=== PATIENT | male | born 1990 | race African-American/Black ===

== ENCOUNTER 2021-12-12 08:08 | Emergency (ER) | payer OTHER ==
[~2021-12-12] VITALS: Ht 182.9 cm; Wt 99.8 kg
--- NOTE | 2021-12-12 08:14 | NUR ---
Colleen chin in [facility] - 12/12/21 at 1059 by ANDREA JOSH ENRIQUEZ AT [facility] FOR EVAL.
--- NOTE | 2021-12-12 08:15 | NUR ---
PIPER ELIZABETH FROM THE STREETS, PER EMS REPORT PATIENTS FRIENDS CALLED BECAUSE PATIENT WAS UNRESPONSIVE S/P TAKING UNKNOWN DRUGS. FRIENDS WERE DOING CPR, UNKNOWN IF PATIENT WAS PULSELESS, WAS GIVEN NARCAN TOTAL 12MG INTRANASAL. PATIENT IS AROUSABLE EX ASSISTANT/PROGRAM DIRECTOR. STATES NAME IS "CASTELLANOS" REFUSING TO PROVIDE MORE INFO. PLACED ON MONITOR. STABLE VITALS. AWAITING MD WATKINS.
--- NOTE | 2021-12-12 08:16 | NUR ---
DR ENRIQUEZ AT BEDSIDE FOR EVAL.
--- NOTE | 2021-12-12 08:45 | NUR ---
BLOOD DRAWN FROM EXISTING IV SENT TO LAB. PT NOT PROVIDING URINE SAMPLE AT THIS TIME.
[2021-12-12 09:24] LABS: ALANINE AMINOTRANSFERASE 42 U/L (12-78); ALBUMIN 4.1 g/dL (3.4-5.0); ALKALINE PHOSPHATASE 80 U/L (46-116); ASPARTATE AMINOTRANSFERASE 32 U/L (15-37); BILIRUBIN,DIRECT 0.1 mg/dL (0.0-0.2); BILIRUBIN,TOTAL 0.5 mg/dL (0.2-1.0); CALCIUM, SERUM 8.4 mg/dL (8.5-10.1); CARBON DIOXIDE 25 mmol/L (21-32); CHLORIDE 102 mmol/L (98-107); CREATININE 1.7 mg/dL (0.6-1.3); GLUCOSE 206 mg/dL (74-106); POTASSIUM 4.2 mmol/L (3.5-5.1); SODIUM SERUM 139 mmol/L (136-145); TOTAL PROTEIN, SERUM 8.1 g/dL (6.4-8.2); UREA NITROGEN, BLOOD 18 mg/dL (7-18)
[2021-12-12 09:25] LABS: ACETAMINOPHEN 0 ug/ml (10-30)
[2021-12-12 09:26] LABS: ALCOHOL, BLOOD < 3 mg/dL (0-0)
[2021-12-12 09:54] LABS: BASOPHILS % (AUTO) 0.2 % (0.0-2.0); HEMATOCRIT 44 % (39-51); HEMOGLOBIN 14.9 g/dL (13.5-17.5); LYMPHOCYTES # (AUTO) 1.3 K/uL (0.8-4.8); MEAN CORPUSCULAR HGB CONC 34 g/dl (31.0-36.0); MEAN CORPUSCULAR VOLUME 97 fL (80-96); MONOCYTES # (AUTO) 0.4 K/uL (0.1-1.30); MONOCYTES % (AUTO) 5.6 % (2.0-12.0); NEUTROPHILS # (AUTO) 5.5 K/uL (1.8-8.9); NEUTROPHILS % (AUTO) 75.2 % (43.0-81.0); PLATELET COUNT (AUTO) 271 K/uL (150-450); RED BLOOD CELL COUNT(AUTO) 4.51 MIL/uL (4.5-6.0); WHITE BLOOD COUNT (AUTO) 7.3 K/uL (4.3-11.0)
--- NOTE | 2021-12-12 10:18 | NUR ---
SS consult for overdose. Pt. Is a 32-year-old Black male. Pt. does not demonstrate adequate insight to the reason for hospitalization. Per pt., he does not remember how he got here. Pt. stated that his is 86 [Per EMR, it states [birth year]]. Pt. was oriented x2 and was not cooperative. SW explored pt.'s hx of mental health and substance abuse. Per pt., he uses marijuana often. Pt. reported no hx of mental health, suicidal or homicidal ideation. Pt. denies auditory hallucinations, visual hallucinations, paranoia, or delusions. SW explored pt.'s living situation. Per pt., he lives with his mom [address: [address] [place] [id number], mom's info: ty [phone]]. Pt. refused to answer further questions. SW left addiction resources at bedside.
--- NOTE | 2021-12-12 11:03 | NUR ---
mom's info: Ty [phone] CALLED LEFT VM
--- NOTE | 2021-12-12 11:08 | NUR ---
CALLED PTS MOM AT [phone] AND LEFT VOICEMAIL
--- NOTE | 2021-12-12 11:41 | NUR ---
Pt.'s mother is on the way to flower buncher or picker pt.
[2021-12-12] MEDS ORDERED: NALO4SPR BNOSTRILS (12:52)
--- NOTE | 2021-12-12 13:02 | NUR ---
The patient is alert and oriented x4. Denies pain. In room air and denies SOB. Respiration regular and unlabored. IV removed. Catheter intact and site benign. Pressure and 4x4 applied to site. No bleeding noted.Patient discharged to home in stable condition. Written and verbal after care instructions given. Patient verbalizes understanding of instruction. The patient is picked up by mother.
[2021-12-12 13:04] VITALS: BP 136/87
== END 2021-12-12 13:04 | disposition home or self-care (01) ==
LOC: EDBD 08:10 → ER 08:10
DX: T50.901A Poisoning by unspecified drugs, medicaments and biological substances, accidental (unintentional), initial encounter (principal); Z59.00 Homelessness unspecified; Y92.89 Other specified places as the place of occurrence of the external cause
CPT/HCPCS: 36415; 71045-TC; 80048-TC; 80076-TC; 85025-TC; G0480